=== PATIENT | female | born 1990 | race Hispanic/Latino ===

== ENCOUNTER 2016-10-08 19:53 | Emergency (ER) | payer OTHER ==
[2016-10-08 20:05] VITALS: BP 106/72; PULSE 81; RESP 16; TEMP 98.2; O2SAT 99
[2016-10-08] MEDS ORDERED: Tetanus/Diphtheria Toxoids 0.5 ml Syringe IM ONE ×2 (21:33→21:37)
--- NOTE | 2016-10-08 21:35 | C.PDOC ---
History Of Present Illness 26 year old female presents to the ED with complaints of pain to her right 4th and 5th toes after accidentally hitting her right foot against a metal fence yesterday. Denies change in sensation or any other complaints at this time. Time Seen by Provider: 10/08/16 20:07 Chief Complaint (Nursing): Lower Extremity Problem/Injury History Per: Patient History/Exam Limitations: no limitations Onset/Duration Of Symptoms: Days Current Symptoms Are (Timing): Still Present Severity: Mild - Ankle/Foot Description Of Injury: Struck Against Object Past Medical History Reviewed: Historical Data, Nursing Documentation, Vital Signs Vital Signs: Last Vital Signs Temp 98.2 F 10/08/16 20:01 Pulse 81 10/08/16 20:01 Resp 16 10/08/16 20:01 BP 106/72 10/08/16 20:01 Pulse Ox 99 10/08/16 21:35 - Medical History PMH: No Chronic Diseases Family History: States: Unknown Family Hx - Social History Hx Alcohol Use: No Hx Substance Use: No - Immunization History Hx Tetanus Toxoid Vaccination: No Hx Influenza Vaccination: No Hx Pneumococcal Vaccination: No Review Of Systems Except As Marked, All Systems Reviewed And Found Negative. Constitutional: Negative for: Fever, Chills Musculoskeletal: Positive for: Other (+Right 4th and 5th toe pain) Neurological: Negative for: Weakness, Numbness Physical Exam - Physical Exam Appears: Non-toxic, No Acute Distress Skin: Warm, Dry Head: Atraumatic, Normacephalic Eye(s): bilateral: Normal Inspection Oral Mucosa: Moist Extremity: Normal ROM, Capillary Refill (< 2 seconds), No Deformity, Other (+ Abrasion and ecchymosis to the 4th and 5th digits of the right foot. No active bleeding) Pulses: Left Dorsalis Pedis: Normal, Right Dorsalis Pedis: Normal Neurological/Psych: Oriented x3, Normal Speech, Normal Cognition, Normal Motor, Normal Sensation ED Course And Treatment O2 Sat by Pulse Oximetry: 99 (Room air) Pulse Ox Interpretation: Normal - Other Rad Right Foot X-ray X-Ray: Interpreted by Me, Viewed By Me Interpretation: Impression: Negative. Progress Note: Right Foot X-ray ordered and reviewed. Patient treated wtih Motrin and given Tetanus vaccine. Rx given and patient advised follow up with her PMD or [employer]. Disposition - Disposition Referrals: Dillon Jose DPM [Staff Provider] - Disposition: HOME/ ROUTINE Disposition Time: 21:33 Condition: GOOD Additional Instructions: Follow up with PMD and [employer] within 1-2 days. Return to ED if feel worse. Prescriptions: Ibuprofen [Motrin Tab] 400 mg PO Q8 #30 tab Instructions: Foot Contusion (ED) - Clinical Impression Clinical Impression: Contusion, toes - PA / PHYSICAL THERAPY ASST / Resident Statement MD/DO has reviewed & agrees with the documentation as recorded. - Scribe Statement The provider has reviewed the documentation as recorded by the Scribe joseph ignacio. All medical record entries made by the Scribe were at my direction and personally dictated by me. I have reviewed the chart and agree that the record accurately reflects my personal performance of the history, physical exam, medical decision making, and the department course for this patient. I have also personally directed, reviewed, and agree with the discharge instructions and disposition.
--- NOTE | 2016-10-09 08:38 | RAD ---
PROCEDURE: Right Foot Radiographs. HISTORY: injury COMPARISON: None. FINDINGS: BONES: Incidental ossifications centers tiny os tibial externums border the medial navicular bone. No fracture. JOINTS: Normal. SOFT TISSUES: Normal. OTHER FINDINGS: Mild hammertoe like orientation 4th toe. Sissoring of the 5th toe over the 4th IMPRESSION: No fracture or dislocation.
== END 2016-10-08 21:47 | disposition home or self-care (01) ==
LOC: C.ER 19:53
DX: S90.121A Contusion of right lesser toe(s) without damage to nail, initial encounter (principal); S90.414A Abrasion, right lesser toe(s), initial encounter; W22.8XXA Striking against or struck by other objects, initial encounter

== ENCOUNTER 2016-11-28 23:29 | Emergency (ER) | payer OTHER ==
[2016-11-28 23:42] VITALS: O2SAT 97
--- NOTE | 2016-11-29 00:57 | C.PDOC ---
History Of Present Illness Patient is a 26 year old female who presents to the ER with a complaint of cough , congestion and fever. Patient reports her son has similar symptoms. Denies vomiting or diarrhea. Time Seen by Provider: 11/29/16 00:30 Chief Complaint (Nursing): Flu-like Symptoms History Per: Patient History/Exam Limitations: no limitations Onset/Duration Of Symptoms: Hrs Current Symptoms Are (Timing): Still Present Location Of Pain: None Sick Contacts (Context): Family Member(s) (Son) Associated Symptoms: Fever, Cough, Nasal Congestion. denies: Vomiting, Diarrhea Ear Symptoms: Bilateral: None Recent travel outside of the [place]: No Past Medical History Reviewed: Historical Data, Nursing Documentation, Vital Signs Vital Signs: Last Vital Signs Temp 100.1 F H 11/29/16 01:14 Pulse 98 H 11/29/16 01:14 Resp 20 11/29/16 01:14 BP 114/79 11/29/16 01:14 Pulse Ox 97 11/29/16 01:14 - Medical History PMH: No Chronic Diseases Surgical History: No Surg Hx Family History: States: Unknown Family Hx - Social History Hx Alcohol Use: No Hx Substance Use: No - Immunization History Hx Tetanus Toxoid Vaccination: No Hx Influenza Vaccination: No Hx Pneumococcal Vaccination: No Review Of Systems Constitutional: Positive for: Fever ENT: Positive for: Nose Congestion Respiratory: Positive for: Cough Gastrointestinal: Negative for: Vomiting, Diarrhea Physical Exam - Physical Exam Appears: Well, Non-toxic Skin: Normal Color, Warm, Dry Head: Atraumatic, Normacephalic Ear(s): Bilateral: Normal Nose: Normal, No Discharge Oral Mucosa: Moist Throat: Erythema Neck: Normal, Supple Chest: Symmetrical, No Tenderness Cardiovascular: Rhythm Regular, No Murmur Respiratory: Normal Breath Sounds, No Rales, No Rhonchi, No Wheezing Gastrointestinal/Abdominal: Soft, No Tenderness Neurological/Psych: Oriented x3, Normal Speech, Normal Cognition ED Course And Treatment O2 Sat by Pulse Oximetry: 97 (Room air) Pulse Ox Interpretation: Normal Progress Note: Amoxicillin and motrin administered. Disposition - Disposition Disposition: HOME/ ROUTINE Disposition Time: 00:55 Condition: STABLE Additional Instructions: Follow up with your PMD within 1-2 days. Return to ED if feel worse. Prescriptions: Amoxicillin 500 mg PO Q8 #30 tab Brompheniramine/Pseudoephed/Dm [Bromfed Dm Cough 118 ml] 10 ml PO Q4 #300 ml Ibuprofen [Motrin Tab] 600 mg PO Q8 #30 tab Instructions: Pharyngitis (ED), Upper Respiratory Infection (ED) - Clinical Impression Clinical Impression: Upper respiratory infection, Pharyngitis - Scribe Statement The provider has reviewed the documentation as recorded by the Scribmadai Zuñiga All medical record entries made by the Nadiaibmadai were at my direction and personally dictated by me. I have reviewed the chart and agree that the record accurately reflects my personal performance of the history, physical exam, medical decision making, and the department course for this patient. I have also personally directed, reviewed, and agree with the discharge instructions and disposition.
[2016-11-29 01:20] VITALS: BP 114/79; PULSE 98; RESP 20; TEMP 100.1
== END 2016-11-29 01:18 | disposition home or self-care (01) ==
LOC: C.ER 23:29
DX: J06.9 Acute upper respiratory infection, unspecified (principal); J02.9 Acute pharyngitis, unspecified

== ENCOUNTER 2017-09-14 18:55 | Emergency (ER) | payer OTHER ==
[2017-09-14] MEDS ORDERED: Sodium Chloride 0.9% 1,000 ML IV ONE ×3 (19:26→22:08)
--- NOTE | 2017-09-14 19:32 | C.PDOC ---
History Of Present Illness 26 year old female presents to the ED c/o crampy abdominal pain associated with watery non bloody diarrhea that started on Thursday and persisted through the weekend. Patient is also c/o lower back pain, dizziness, lightheadedness, decreased appetite recently started drinking Gatorade yesterday. Patient states symptoms started after eating at a restaurant, with a similar episode couple of months back with the same symptoms occurred after eating at the same restaurant. Patient denies fever, chills, dysuria, hemturia, vaginal discharge. Time Seen by Provider: 09/14/17 19:20 Chief Complaint (Nursing): Abdominal Pain History Per: Patient History/Exam Limitations: no limitations Onset/Duration Of Symptoms: Days Current Symptoms Are (Timing): Still Present Context: Food Location Of Pain/Discomfort: Diffuse Radiation Of Pain To:: Back Quality Of Discomfort: Cramping Associated Symptoms: Diarrhea, Loss Of Appetite, Back Pain Exacerbating Factors: Food Alleviating Factors: None Last Bowel Movement: Today Recent travel outside of the [place]: No Additional History Per: Patient Abnormal Vaginal Bleeding: No Past Medical History Reviewed: Historical Data, Nursing Documentation, Vital Signs Vital Signs: Last Vital Signs Temp 97.4 F L 09/14/17 19:03 Pulse 80 09/14/17 23:26 Resp 22 09/14/17 23:26 BP 110/72 09/14/17 23:26 Pulse Ox 98 09/14/17 23:26 - Medical History PMH: No Chronic Diseases Surgical History: No Surg Hx Family History: States: Unknown Family Hx - Social History Hx Alcohol Use: No Hx Substance Use: No - Immunization History Hx Tetanus Toxoid Vaccination: Yes (2016) Hx Influenza Vaccination: Yes (2016) Hx Pneumococcal Vaccination: No Review Of Systems Constitutional: Negative for: Fever, Chills Cardiovascular: Negative for: Chest Pain Respiratory: Negative for: Cough, Shortness of Breath Gastrointestinal: Positive for: Abdominal Pain, Diarrhea Genitourinary: Negative for: Dysuria, Hematuria Musculoskeletal: Positive for: Back Pain Skin: Negative for: Rash Neurological: Negative for: Weakness, Numbness Physical Exam - Physical Exam Appears: Non-toxic, No Acute Distress Skin: Normal Color, Warm, Dry Head: Atraumatic, Normacephalic Eye(s): bilateral: Normal Inspection Nose: No Discharge Oral Mucosa: Dry Neck: Normal ROM, Supple Chest: Symmetrical Cardiovascular: Rhythm Regular, No Murmur Respiratory: Normal Breath Sounds, No Rales, No Rhonchi, No Wheezing Gastrointestinal/Abdominal: Bowel Sounds (quiet but active), Soft, No Tenderness , No Guarding, No Rebound Extremity: Normal ROM, No Tenderness, No Swelling Neurological/Psych: Oriented x3 ED Course And Treatment - Laboratory Results Result Diagrams: 09/14/17 19:47 09/14/17 19:47 Lab Interpretation: No Acute Changes (urine very concentrated with sp gr 1.039) O2 Sat by Pulse Oximetry: 98 (On RA) Pulse Ox Interpretation: Normal Progress Note: Patient treated with 2 liters of saline, Bentyl and Tylenol. Still c/o headache. No abdominal pain or episodes of diarrhea in ED. Patient drinking and eating chips without difficulty. Reevaluation Time: 23:33 Reassessment Condition: Improved (Patient resting quietly. Still c/o abdominal and lower back pain but abdomen is soft.) Medical Decision Making Medical Decision Making: Impression: abdominal pain, diarrhea Plan: * Labs * Bentyl 20 mg IM * IV fluids * Stool culture * UA Disposition Counseled Patient/Family Regarding: Studies Performed, Diagnosis, Need For Followup, Rx Given - Disposition Referrals: [facility] [Outside] Disposition: HOME/ ROUTINE Disposition Time: 23:34 Condition: IMPROVED Prescriptions: Dicyclomine [Bentyl] 20 mg PO QID PRN #20 tab PRN Reason: Pain, Severe (8-10) Instructions: Acute Abdomen (Belly Pain), Adult (DC), [place] Diet Forms: [employer] (Tajik) - Clinical Impression Clinical Impression: Abdominal pain - Scribe Statement The provider has reviewed the documentation as recorded by the Scribe Derrick Vuong All medical record entries made by the Scribe were at my direction and personally dictated by me. I have reviewed the chart and agree that the record accurately reflects my personal performance of the history, physical exam, medical decision making, and the department course for this patient. I have also personally directed, reviewed, and agree with the discharge instructions and disposition.
[2017-09-14] MEDS ORDERED: Sodium Chloride 0.9% 1,000 ML ONE ×2 (19:48→22:15)
[2017-09-14 19:55] LABS: BASO % 0.9 % (0.0-2.0); EOS % 1.1 % (0.0-4.0); HEMOGLOBIN 14.4 g/dL (11.0-16.0); LYMPH # 1.8 K/uL (1.0-4.3); LYMPH % 38.2 % (20.0-40.0); MEAN CELL VOLUME 84.3 fL (81.0-99.0); MEAN CORPUSCULAR HEMOGLOBIN 28.4 pg (27.0-31.0); MEAN CORPUSCULAR HGB CONC 33.7 g/dL (33.0-37.0); MONO # 0.5 K/uL (0.0-0.8); MONO % 10.9 % (0.0-10.0); NEUT # 2.3 K/uL (1.8-7.0); NEUT % 48.9 % (50.0-75.0); NRBC % 0.1 % (0.0-2.0); RBC 5.07 Mil/uL (3.80-5.20); WHITE BLOOD COUNT 4.7 K/uL (4.8-10.8)
[2017-09-14 19:57] LABS: HCG,QUALITATIVE URINE NEGATIVE (NEGATIVE); SQUAMOUS EPITHIAL 4 /hpf (0-5); URINE BACTERIA OCC (<OCC); URINE BILIRUBIN NEGATIVE (NEGATIVE); URINE BLOOD NEGATIVE (NEGATIVE); URINE CLARITY Hazy (Clear); URINE COLOR Yellow (YELLOW); URINE GLUCOSE (UA) NORMAL (Normal); URINE LEUKOCYTE ESTERASE TRACE Leu/uL (Negative); URINE PROTEIN 1+ mg/dL (NEGATIVE)
[2017-09-14 20:08] LABS: ALB/GLOB RATIO 1.1 (1.0-2.1); ALBUMIN 4.8 g/dL (3.5-5.0); ALT/SGPT 34 U/L (9-52); AST/SGOT 33 U/L (14-36); BLOOD UREA NITROGEN 17 mg/dL (7-17); CALCIUM 9.3 mg/dl (8.6-10.4); GFR AFRICAN-AMERICAN > 60; GFR NON-AFRICAN AMERICAN > 60; LIPASE 85 U/L (23-300)
[2017-09-14 22:18] VITALS: RESP 22
[2017-09-14 23:27] VITALS: BP 110/72; PULSE 80; O2SAT 98
[2017-09-14 23:47] VITALS: TEMP 97.9
== END 2017-09-14 23:47 | disposition home or self-care (01) ==
LOC: C.ER 18:55
DX: R10.9 Unspecified abdominal pain (principal)
CPT/HCPCS: 80053; 81001; 83690; 84703; 85025; 96360; 96372; 99285; J0500; J7040

== ENCOUNTER 2018-07-03 10:15 | Emergency (ER) | payer OTHER ==
[2018-07-03 10:24] VITALS: BP 110/78; PULSE 84; RESP 18; TEMP 97.7; O2SAT 98
[2018-07-03] MEDS ORDERED: Naproxen 550 mg Tab PO STA (10:32)
--- NOTE | 2018-07-03 10:41 | C.PDOC ---
History Of Present Illness 27 y/o female presents to the ER c/o non productive cough for x3 days, associated with runny nose and body aches. Pt has (+) sick contacts - family members at home have similar sx. She denies fever, chills, sore throat, chest pain, abdominal pain, nausea, vomitnig, diarrhea, dysuria. Time Seen by Provider: 07/03/18 10:19 Chief Complaint (Nursing): Flu-like Symptoms History Per: Patient History/Exam Limitations: no limitations Onset/Duration Of Symptoms: Days (x3) Current Symptoms Are (Timing): Still Present Associated Symptoms: Cough (non-productive ), Sinus Drainage, Myalgias. denies: Fever, Chills, Sore Throat, Sputum, Vomiting, Diarrhea Severity: Moderate Past Medical History Reviewed: Historical Data, Nursing Documentation, Vital Signs Vital Signs: Last Vital Signs Temp 97.7 F 07/03/18 10:21 Pulse 84 07/03/18 10:21 Resp 18 07/03/18 10:21 BP 110/78 07/03/18 10:21 Pulse Ox 98 07/03/18 10:21 - Medical History PMH: No Chronic Diseases Family History: States: No Known Family Hx - Social History Hx Alcohol Use: No Hx Substance Use: No - Immunization History Hx Tetanus Toxoid Vaccination: Yes (2016) Hx Influenza Vaccination: No (2016) Hx Pneumococcal Vaccination: No Review Of Systems Constitutional: Negative for: Fever, Chills ENT: Positive for: Nose Congestion. Negative for: Ear Pain, Throat Pain Cardiovascular: Negative for: Chest Pain, Palpitations Respiratory: Positive for: Cough (non-productive). Negative for: Shortness of Breath Gastrointestinal: Negative for: Nausea, Vomiting, Abdominal Pain, Diarrhea Genitourinary: Negative for: Dysuria Musculoskeletal: Positive for: Other (bodyaches ) Skin: Negative for: Rash Physical Exam - Physical Exam Appears: Well, Non-toxic, No Acute Distress Skin: Normal Color, Warm, Dry, No Rash Nose: Discharge (clear rhinorrhea ) Oral Mucosa: Moist Throat: Normal, No Erythema, No Exudate, No Drooling Neck: Supple Lymphatic: No Adenopathy Cardiovascular: Rhythm Regular Respiratory: Normal Breath Sounds, No Rales, No Rhonchi, No Wheezing, Other (occasional coughing, able to speak full sentences) Gastrointestinal/Abdominal: Normal Exam, Bowel Sounds, Soft, No Tenderness Neurological/Psych: Oriented x3 ED Course And Treatment O2 Sat by Pulse Oximetry: 98 (RA) Pulse Ox Interpretation: Normal Progress Note: Upreg POC (-). Patient given PO Naprosyn, Sudafed and Tessalon. Symptoms consistent with viral syndrome/URI. Rxs for Sudafed, tessalon and Naprosyn given. Patient instructed to drink plenty of fluids, get rest and follow up with PMD/clinic in 1-2 days. She understands she should return to ED if symptoms worsen. Reevaluation Time: 10:55 Reassessment Condition: Improved Disposition Counseled Patient/Family Regarding: Diagnosis, Need For Followup, Rx Given - Disposition Referrals: [facility] [Outside] Disposition: HOME/ ROUTINE Disposition Time: 10:50 Condition: STABLE Additional Instructions: FOLLOW UP WITH YOUR DOCTOR/CLINIC IN 1-2 DAYS DRINK PLENTY OF FLUIDS AND GET REST RETURN TO ER IF SYMPTOMS WORSEN Prescriptions: Benzonatate [Tessalon Perles] 100 mg PO BID PRN #15 sgl PRN Reason: Cough Naproxen 375 mg PO BID PRN #20 tablet PRN Reason: pain Pseudoephedrine [Sudafed] 60 mg PO Q6 PRN #12 tab PRN Reason: Nasal Congestion Instructions: Viral Syndrome (DC) Forms: [facility] [employer] (Nauruan), Work Excuse Print Language: FRISIAN - Clinical Impression Clinical Impression: Influenza-like illness, Upper respiratory infection - Scribe Statement The provider has reviewed the documentation as recorded by the Scribe Sales Do Provider Attestation: All medical record entries made by the Scribe were at my direction and personally dictated by me. I have reviewed the chart and agree that the record accurately reflects my personal performance of the history, physical exam, medical decision making, and the department course for this patient. I have also personally directed, reviewed, and agree with the discharge instructions and disposition.
[2018-07-03] MEDS ORDERED: Naproxen 550 mg Tab PO ONE (10:53)
== END 2018-07-03 10:55 | disposition home or self-care (01) ==
LOC: C.ER 10:15
DX: J11.1 Influenza due to unidentified influenza virus with other respiratory manifestations (principal)

== ENCOUNTER 2018-07-13 18:56 | Emergency (ER) | payer OTHER ==
[2018-07-13 19:21] VITALS: BP 122/80; PULSE 102; RESP 18; TEMP 99.6; O2SAT 99
--- NOTE | 2018-07-13 21:06 | C.PDOC ---
History Of Present Illness 27 y/o female c/o sore throat with swollen white tonsils x 1 days with right ear pain. no fever. able to swallow water. Time Seen by Provider: 07/13/18 20:39 Chief Complaint (Nursing): ENT Problem History Per: Patient History/Exam Limitations: None Onset/Duration Of Symptoms: Days (1) Current Symptoms Are (Timing): Worse Quality (Ear): Pain W/Touch Quality (Mouth/Throat): Tenderness, Swelling, Redness Symptoms Have Been: Continuous Severity: Moderate Anticoagulant/Antiplatlet Use?: No Recent Aspirin Use: No Past Medical History Reviewed: Historical Data, Nursing Documentation, Vital Signs Vital Signs: Last Vital Signs Temp 99.6 F 07/13/18 19:21 Pulse 102 H 07/13/18 19:21 Resp 18 07/13/18 19:21 BP 122/80 07/13/18 19:21 Pulse Ox 99 07/13/18 19:21 - Medical History PMH: No Chronic Diseases Family History: States: Unknown Family Hx - Social History Hx Alcohol Use: No Hx Substance Use: No - Immunization History Hx Tetanus Toxoid Vaccination: Yes (2016) Hx Influenza Vaccination: No (2016) Hx Pneumococcal Vaccination: No Review Of Systems Constitutional: Positive for: Fever (feels warm) ENT: Positive for: Ear Pain, Throat Pain, Throat Swelling. Negative for: Ear Discharge, Nose Pain, Nose Discharge, Nose Congestion Respiratory: Negative for: Cough, Shortness of Breath Gastrointestinal: Negative for: Abdominal Pain Physical Exam - Physical Exam Appears: Non-toxic, Other (uncomfortable) Skin: Warm, Dry Head: Atraumatic, Normacephalic Eye(s): bilateral: Normal Inspection Ear(s): Left: Normal, Right: TM Erythema Nose: No Discharge Oral Mucosa: Moist Tongue: Normal Appearing Lips: Normal Appearing Throat: Erythema, Exudate (white exudate right tonsil), Other (bilateral tonsilar enlargement, right greater than left. ) Neck: Supple Lymphatic: Adenopathy Chest: No Deformity, No Tenderness Cardiovascular: Rhythm Regular, No Murmur Respiratory: No Decreased Breath Sounds, No Rales, No Rhonchi, No Wheezing ED Course And Treatment O2 Sat by Pulse Oximetry: 99 Medical Decision Making Medical Decision Making: pt with exudate pharyngitis. tx with amox and tylenol Disposition Counseled Patient/Family Regarding: Diagnosis, Need For Followup, Rx Given - Disposition Disposition: HOME/ ROUTINE Disposition Time: 21:08 Condition: GOOD Additional Instructions: Tylenol for pain or fever every 4-6 hours. Gargle with warm salty water several times a day. Drink warm liquids. Take antibiotics until completed. Follow up with your primary care doctor in 2-3 days. Return to ER for any worse symptoms. Prescriptions: Acetaminophen [Tylenol 325mg tab] 650 mg PO Q4 #50 tab Amoxicillin [Amoxil 500 mg Cap] 500 mg PO BID #20 cap Instructions: Sore Throat, Adult (DC) Forms: [facility] (Paraguayan), General Discharge Instructions, Work Excuse - Clinical Impression Clinical Impression: Exudative pharyngitis
== END 2018-07-13 21:21 | disposition home or self-care (01) ==
LOC: C.ER 18:56
DX: J02.9 Acute pharyngitis, unspecified (principal)